=== PATIENT | female | born 1960 | race Caucasian/White ===

== ENCOUNTER 2017-01-01 21:29 | Emergency (ER) | payer MEDICAID ==
[~2017-01-01] VITALS: Ht 167.6 cm; Wt 72.6 kg
--- NOTE | 2017-01-01 21:45 | NUR ---
To bed a 56 yo female bibra with c/o head pain at 9/10 s/p hitting head on the garage door, denies LOC, no nausea/vomiting, no dizziness and also patient reported pain on the left ankle after she fall off the curb 2 days ago. Patient is alert oriented x4, ambulatory. No s/s of acute distress noted. Breathing even and unlabored. Gowned. Awaiting for er md rivera.
[2017-01-01 23:32] VITALS: BP 147/81
--- NOTE | 2017-01-01 23:32 | NUR ---
Patient discharged to home in stable condition. Written and verbal after care instructions given. Patient verbalizes understanding of instruction. PT ambulatory with a steady gait
== END 2017-01-02 00:29 | disposition home or self-care (01) ==
LOC: ER 21:30
DX: S93.402A Sprain of unspecified ligament of left ankle, initial encounter (principal); S09.90XA Unspecified injury of head, initial encounter; R21 Rash and other nonspecific skin eruption; X37.1XXA Tornado, initial encounter; Y93.89 Activity, other specified; Y92.89 Other specified places as the place of occurrence of the external cause; Y99.8 Other external cause status
CPT/HCPCS: 73610; 99284; A4606; Z7610

== ENCOUNTER 2017-12-02 07:08 | Emergency (ER) | payer SELFPAY ==
[~2017-12-02] VITALS: Ht 170.2 cm; Wt 74.8 kg
[2017-12-02 07:10] VITALS: BP 155/85
--- NOTE | 2017-12-02 08:15 | NUR ---
URINE SAMPLE COLLECTED FROM PATIENT AND SEND TO LAB
--- NOTE | 2017-12-02 08:24 | NUR ---
CALLED LAB FOR URINE SAMPLE DIRECTOR STERILE PROCESSING.
[2017-12-02 08:32] LABS: APPEARANCE,URINE CLEAR (CLEAR); BILIRUBIN,URINE 1+ (NEGATIVE); BLOOD, URINE 3+ Ery/uL (NEGATIVE); COLOR,URINE YELLOW (YELLOW); KETONES,URINE 1+ (NEGATIVE); LEUKOCYTE ESTERASE ,URINE NEGATIVE (NEGATIVE); NITRITE, URINE NEGATIVE (NEGATIVE); PH,URINE 5.5 (5.0-8.0); PROTEIN,URINE 2+ mg/dl (NEGATIVE); UGLUCOSE NEGATIVE (NEGATIVE)
[2017-12-02 08:37] LABS: BACTERIA,URINE Rare /HPF (None Seen); SQUAMOUS EPITHELIAL CELL,UR Few /HPF (None Seen); WBC,URINE 0-2 /HPF (0-3); YEAST,URINE Few /HPF (None Seen)
== END 2017-12-02 08:55 | disposition home or self-care (01) ==
LOC: ER 07:09
DX: R21 Rash and other nonspecific skin eruption (principal); R11.0 Nausea; F17.200 Nicotine dependence, unspecified, uncomplicated
CPT/HCPCS: 81001; 99283; A4606; Z7610; 81000-TC

== ENCOUNTER 2018-04-09 00:23 | Emergency (ER) | payer MEDICAID ==
[~2018-04-09] VITALS: Ht 165.1 cm; Wt 102.5 kg
[2018-04-09 00:28] VITALS: BP 169/101
== END 2018-04-09 02:49 | disposition home or self-care (01) ==
LOC: ER 00:24
DX: L03.116 Cellulitis of left lower limb (principal); I10 Essential (primary) hypertension; F41.9 Anxiety disorder, unspecified; F17.200 Nicotine dependence, unspecified, uncomplicated
CPT/HCPCS: 99283; 99406; A4606; Z7610

== ENCOUNTER 2020-07-03 11:44 | Emergency (ER) | payer SELFPAY ==
[~2020-07-03] VITALS: Ht 167.6 cm; Wt 102.5 kg
[2020-07-03 11:57] VITALS: BP 154/94
--- NOTE | 2020-07-03 12:00 | NUR ---
RIGHT ANKLE PAIN; SHE TWISTED WHILE WALKING
[2020-07-03] MEDS ORDERED: IBUPROFEN 600 MG TABLET ONE (12:30)
[2020-07-03] MEDS: IBUPROFEN 600 MG TABLET PO ONE (12:33)
== END 2020-07-03 12:54 | disposition home or self-care (01) ==
LOC: ER 11:46
DX: S93.491A Sprain of other ligament of right ankle, initial encounter (principal); I10 Essential (primary) hypertension; F41.9 Anxiety disorder, unspecified; F17.200 Nicotine dependence, unspecified, uncomplicated; X50.1XXA Overexertion from prolonged static or awkward postures, initial encounter; Y93.01 Activity, walking, marching and hiking; Y92.89 Other specified places as the place of occurrence of the external cause; Y99.8 Other external cause status
CPT/HCPCS: 73610-TC

== ENCOUNTER 2020-12-05 04:29 | Emergency (ER) | payer MEDICAID, OTHER ==
[~2020-12-05] VITALS: Ht 165.1 cm; Wt 99.8 kg
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
--- NOTE | 2020-12-05 04:46 | NUR ---
XRAY AT BEDSIDE
[2020-12-05 05:12] VITALS: BP 125/71
--- NOTE | 2020-12-05 05:12 | NUR ---
Patient discharged to home in stable condition. Written and verbal after care instructions given. Patient verbalizes understanding of instruction. Pt ambulatory with a steady gait
== END 2020-12-05 05:12 | disposition home or self-care (01) ==
LOC: ER 04:31
DX: M25.561 Pain in right knee (principal); G89.29 Other chronic pain; I10 Essential (primary) hypertension; F41.9 Anxiety disorder, unspecified; F10.10 Alcohol abuse, uncomplicated; F17.200 Nicotine dependence, unspecified, uncomplicated; Y90.9 Presence of alcohol in blood, level not specified; Z88.0 Allergy status to penicillin
CPT/HCPCS: 73564-TC

== ENCOUNTER 2021-07-09 05:34 | Emergency (ER) | payer OTHER ==
[~2021-07-09] VITALS: Ht 165.1 cm; Wt 99.8 kg
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
--- NOTE | 2021-07-09 06:56 | NUR ---
xray at bedside
[2021-07-09] MEDS ORDERED: IBUP-1955 PO (08:00)
[2021-07-09 08:12] VITALS: BP 130/79
== END 2021-07-09 08:12 | disposition home or self-care (01) ==
LOC: ER 05:40
DX: S62.002A Unspecified fracture of navicular [scaphoid] bone of left wrist, initial encounter for closed fracture (principal); S93.492A Sprain of other ligament of left ankle, initial encounter; I10 Essential (primary) hypertension; F41.9 Anxiety disorder, unspecified; F10.10 Alcohol abuse, uncomplicated; F17.200 Nicotine dependence, unspecified, uncomplicated; Y90.9 Presence of alcohol in blood, level not specified; Z88.0 Allergy status to penicillin; Z79.899 Other long term (current) drug therapy; W22.8XXA Striking against or struck by other objects, initial encounter; Y93.89 Activity, other specified; Y92.89 Other specified places as the place of occurrence of the external cause; Y99.8 Other external cause status
CPT/HCPCS: 73110; 73610-TC